=== PATIENT | female | born 2000 | race African-American/Black ===

== ENCOUNTER 2022-07-03 07:24 | Outpatient (CLI) | payer OTHER ==
[2022-07-03 11:48] LABS: BASOPHILS % (AUTO) 0.8 %; EOSINOPHILS # (AUTO) 0.1 10^3/uL (0.0-0.7); EOSINOPHILS % (AUTO) 1.7 %; HCT - HEMATOCRIT 39.9 % (37.0-47.0); HGB - HEMOGLOBIN 12.6 g/dL (12.0-16.0); LYMPHOCYTES % (AUTO) 38.4 %; MEAN CORPUSCULAR HEMOGLOBIN 28.3 pg (27.0-31.0); MEAN CORPUSCULAR HGB CONC 31.6 g/dL (32.0-36.0); MEAN CORPUSCULAR VOLUME 89.5 fL (81.0-99.0); MEAN PLATELET VOLUME 9.9 fL (7.9-10.8); MONOCYTES # (AUTO) 0.3 10^3/uL (0.0-1.0); MONOCYTES % (AUTO) 6.3 %; NEUTROPHILS # (AUTO) 2.8 10^3/uL (1.5-6.6); NEUTROPHILS % (AUTO) 52.8 %; PLT - PLATELET COUNT 358 10^3/uL (130-450); RED BLOOD COUNT 4.46 10^6/uL (4.20-5.40); RED CELL DISTRIBUTION WIDTH 11.6 % (12.0-15.0); WHITE BLOOD COUNT 5.2 x10^3/uL (4.8-10.8)
[2022-07-03 13:40] LABS: ALBUMIN 3.9 g/dL (3.2-5.5); ALBUMIN/GLOBULIN RATIO 1.1 (1.0-2.2); BILIRUBIN,TOTAL 0.6 mg/dL (0.2-1.0); CALCIUM 9.3 mg/dL (8.5-10.3); CREATININE 0.6 mg/dL (0.4-1.0); POTASSIUM 3.9 mmol/L (3.5-5.0); TOTAL PROTEIN 7.5 g/dL (6.7-8.2)
[2022-07-03 13:58] LABS: THYROID STIMULATING HORMONE 1.97 uIU/mL (0.34-5.60)
[2022-07-03 20:53] LABS: CHLAMYDIA TRACHOMATIS DNA NEGATIVE (NEGATIVE); NEISSERIA GONORRHOEAE DNA NEGATIVE (NEGATIVE); TRICHOMONAS VAGINALIS DNA NEGATIVE (NEGATIVE)
[2022-07-04 05:14] LABS: HCV AB Non Reactive (Non Reactive); HIV SCREEN 4TH GENERATION Non Reactive (Non Reactive); HSV 1 IGG TYPE SPEC <0.91 index (0.00-0.90); HSV 2 IGG TYPE SPEC <0.91 index (0.00-0.90)
[2022-07-04 06:10] LABS: RPR Non Reactive (Non Reactive)
== END 2022-07-03 07:25 | disposition home or self-care (01) ==
LOC: LAB.N 07:24
PROVIDERS: ATTEND Physician Assistant
DX: Z00.00 Encounter for general adult medical examination without abnormal findings (principal); Z11.3 Encounter for screening for infections with a predominantly sexual mode of transmission
CPT/HCPCS: 36415; 80053; 84443; 85025; 86592; 86695; 86696; 86803; 87389; 87491; 87591; 87661

== ENCOUNTER 2022-07-03 19:19 | Outpatient (CLI) | payer OTHER ==
[2022-07-03 20:10] LABS: THYROID STIMULATING HORMONE 2.01 uIU/mL (0.34-5.60)
[2022-07-03 20:12] LABS: FREE T3 4.09 pg/mL (2.5-3.9)
[2022-07-03 20:15] LABS: FREE T4 (FREE THYROXINE) 0.76 ng/dL (0.58-1.64)
[2022-07-03 20:18] LABS: PROLACTIN 9.7 ng/mL
[2022-07-03 20:38] LABS: FOLLICLE STIMULATING HORMONE 6.06 mIU/mL
[2022-07-03 20:39] LABS: LUTEINIZING HORMONE 4.99 mIU/mL
[2022-07-05 07:09] LABS: DHEA-SULFATE 66.7 ug/dL (110.0-431.7); ESTRADIOL 37.9 pg/mL (.); PROGESTERONE 0.3 ng/mL (.)
[2022-07-08 16:08] LABS: SEX HORM BINDING GLOB SERUM 43.6 nmol/L (24.6-122.0)
== END 2022-07-03 19:20 | disposition home or self-care (01) ==
LOC: LAB 19:19
PROVIDERS: ATTEND Nurse Practitioner
DX: Z00.00 Encounter for general adult medical examination without abnormal findings (principal); Z11.3 Encounter for screening for infections with a predominantly sexual mode of transmission
CPT/HCPCS: 36415; 80053; 82397; 82627; 82670; 83001; 83002; 83498; 84144; 84146; 84270; 84402; 84403; 84439; 84443; 84481; 85025; 86592; 86695; 86696; 86803; 87389; 87491; 87591; 87661

== ENCOUNTER 2022-08-14 08:00 | Outpatient (CLI) | payer OTHER ==
[2022-08-14 11:37] LABS: BILIRUBIN,URINE NEGATIVE (NEGATIVE); GLUCOSE, URINE (UA) NEGATIVE (NEGATIVE); KETONES,URINE (UA) NEGATIVE (NEGATIVE); LEUKOCYTE ESTERASE, URINE NEGATIVE (NEGATIVE); NITRITE,URINE NEGATIVE (NEGATIVE); OCCULT BLOOD,URINE NEGATIVE (NEGATIVE); PH,URINE 6.5 PH (5.0-7.5); PROTEIN,URINE NEGATIVE (NEGATIVE); UROBILINOGEN,URINE 0.2 (NORMAL) E.U./dL (NORMAL)
[2022-08-14 11:42] LABS: BACTERIA,URINE None Seen /HPF (None Seen); CLARITY,URINE CLEAR (CLEAR); RBC,URINE 0-5 /HPF (0-5); SQUAMOUS EPITHELIAL CELL,UR RARE Squamous (<= Few); WBC,URINE 0-3 /HPF (0-5)
== END 2022-08-14 23:59 | disposition home or self-care (01) ==
LOC: LAB.WC 08:00
PROVIDERS: ATTEND Obstetrics & Gynecology
DX: Z34.90 Encounter for supervision of normal pregnancy, unspecified, unspecified trimester (principal)
CPT/HCPCS: 81001; 87086

== ENCOUNTER 2022-08-18 07:54 | Outpatient (CLI) | payer OTHER ==
[2022-08-18 09:16] LABS: BASOPHILS % (AUTO) 0.5 %; EOSINOPHILS # (AUTO) 0.1 10^3/uL (0.0-0.7); EOSINOPHILS % (AUTO) 0.9 %; HCT - HEMATOCRIT 38.4 % (37.0-47.0); HGB - HEMOGLOBIN 12.6 g/dL (12.0-16.0); LYMPHOCYTES # (AUTO) 1.5 10^3/uL (1.5-3.5); LYMPHOCYTES % (AUTO) 25.9 %; MEAN CORPUSCULAR HEMOGLOBIN 28.7 pg (27.0-31.0); MEAN CORPUSCULAR HGB CONC 32.8 g/dL (32.0-36.0); MEAN CORPUSCULAR VOLUME 87.5 fL (81.0-99.0); MEAN PLATELET VOLUME 9.4 fL (7.9-10.8); MONOCYTES # (AUTO) 0.4 10^3/uL (0.0-1.0); MONOCYTES % (AUTO) 6.8 %; NEUTROPHILS # (AUTO) 3.9 10^3/uL (1.5-6.6); NEUTROPHILS % (AUTO) 65.7 %; PLT - PLATELET COUNT 302 10^3/uL (130-450); RED BLOOD COUNT 4.39 10^6/uL (4.20-5.40); RED CELL DISTRIBUTION WIDTH 11.4 % (12.0-15.0); WHITE BLOOD COUNT 5.9 x10^3/uL (4.8-10.8)
--- NOTE | 2022-08-18 10:59 | Ultrasound Report ---
PROCEDURE: OB First Trimester w/TV INDICATIONS: FERTILITY PLANNING OUTSIDE/PRIOR DATING DATA: Last menstrual period (LMP): 06/30/2022. LMP-based estimated date of delivery (LIZA): 04/06/2023. First dating scan (date and location): 08/18/2022. Estimated date of delivery (LIZA) from first dating scan: 04/09/2023. TECHNIQUE: Real-time scanning was performed of the fetus and maternal pelvic organs, with image documentation. Endovaginal scanning was also performed to better visualize the fetus and maternal ovaries. COMPARISON: None FINDINGS: heart rate is 130 bpm. [place]-rump length is 0.7 cm, corresponding to ultrasound age of 6 weeks and 4 days. Mean gestational sac diameter is 2.1 cm. Adnexal structures are within normal limits. Yolk sac is present. There is a subchorionic hemorrhage measures 3.3 x 2.5 cm. IMPRESSION: Living intrauterine gestation in ultrasound age of 6 weeks and 4 days, concordant with reported LMP. Perigestational hemorrhage is present. Reviewed by: Jose Devries MD on 08/18/2022 10:58 AM PDT Approved by: Jose Devries MD on 08/18/2022 10:58 AM PDT Station ID: [id number]
[2022-08-19 03:09] LABS: HBsAG SCREEN Negative (Negative); HCV AB Non Reactive (Non Reactive); HIV SCREEN 4TH GENERATION Non Reactive (Non Reactive)
[2022-08-19 05:12] LABS: RPR Non Reactive (Non Reactive)
[2022-08-19 08:10] LABS: VARICELLA-ZOSTER AB IGG 468 index (Immune >165)
== END 2022-08-18 07:55 | disposition home or self-care (01) ==
LOC: DI 07:54
PROVIDERS: ATTEND Nurse Practitioner
DX: O20.8 Other hemorrhage in early pregnancy (principal); Z3A.01 Less than 8 weeks gestation of pregnancy; Z71.89 Other specified counseling
CPT/HCPCS: 36415; 85025; 86592; 86762; 86787; 86803; 86850; 86900; 86901; 87340; 87389

== ENCOUNTER 2022-09-04 08:00 | Outpatient (CLI) | payer OTHER ==
[2022-09-04 20:25] LABS: CHLAMYDIA TRACHOMATIS DNA NEGATIVE (NEGATIVE); NEISSERIA GONORRHOEAE DNA NEGATIVE (NEGATIVE); TRICHOMONAS VAGINALIS DNA NEGATIVE (NEGATIVE)
== END 2022-09-04 23:59 | disposition home or self-care (01) ==
LOC: LAB.WC 08:00
PROVIDERS: ATTEND Nurse Practitioner
DX: Z11.3 Encounter for screening for infections with a predominantly sexual mode of transmission (principal)
CPT/HCPCS: 87491; 87591; 87661

== ENCOUNTER 2022-12-09 08:00 | Outpatient (CLI) | payer OTHER ==
[2022-12-09 16:14] LABS: BILIRUBIN,URINE NEGATIVE (NEGATIVE); GLUCOSE, URINE (UA) NEGATIVE (NEGATIVE); KETONES,URINE (UA) NEGATIVE (NEGATIVE); LEUKOCYTE ESTERASE, URINE TRACE (NEGATIVE); NITRITE,URINE NEGATIVE (NEGATIVE); OCCULT BLOOD,URINE NEGATIVE (NEGATIVE); PROTEIN,URINE NEGATIVE (NEGATIVE); UROBILINOGEN,URINE 0.2 (NORMAL) E.U./dL (NORMAL)
[2022-12-09 16:16] LABS: CLARITY,URINE HAZY (CLEAR)
[2022-12-09 16:21] LABS: AMORPHOUS SEDIMENT,UR Marked /LPF; BACTERIA,URINE Rare /HPF (None Seen); RBC,URINE 0-5 /HPF (0-5); SQUAMOUS EPITHELIAL CELL,UR FEW Squamous (<= Few)
[2022-12-09 18:35] LABS: BACTERIAL VAGINOSIS DNA POSITIVE (NEGATIVE); CANDIDA GLABRATA DNA NEGATIVE (NEGATIVE); CANDIDA GROUP DNA POSITIVE (NEGATIVE); CANDIDA KRUSEI DNA NEGATIVE (NEGATIVE); TRICHOMONAS VAGINALIS DNA NEGATIVE (NEGATIVE)
== END 2022-12-09 23:59 | disposition home or self-care (01) ==
LOC: LAB.WC 08:00
PROVIDERS: ATTEND Nurse Practitioner
DX: R30.0 Dysuria (principal); N89.8 Other specified noninflammatory disorders of vagina
CPT/HCPCS: 81001; 81514; 87086

== ENCOUNTER 2022-12-22 08:00 | Outpatient (CLI) | payer OTHER ==
[2022-12-22 16:47] LABS: BILIRUBIN,URINE NEGATIVE (NEGATIVE); GLUCOSE, URINE (UA) 100 mg/dL (NEGATIVE); KETONES,URINE (UA) NEGATIVE (NEGATIVE); LEUKOCYTE ESTERASE, URINE NEGATIVE (NEGATIVE); NITRITE,URINE NEGATIVE (NEGATIVE); OCCULT BLOOD,URINE NEGATIVE (NEGATIVE); PROTEIN,URINE TRACE mg/dL (NEGATIVE); UROBILINOGEN,URINE 0.2 (NORMAL) E.U./dL (NORMAL)
[2022-12-22 17:00] LABS: CREATININE,URINE 195.7 mg/dL; PROTEIN/CREATININE RATIO,URINE 0.1 (<=0.2)
[2022-12-22 17:02] LABS: CLARITY,URINE HAZY (CLEAR); RBC,URINE 0-5 /HPF (0-5)
[2022-12-22 17:03] LABS: BACTERIA,URINE Few /HPF (None Seen); SQUAMOUS EPITHELIAL CELL,UR MANY Squamous (<= Few)
== END 2022-12-22 23:59 | disposition home or self-care (01) ==
LOC: LAB.WC 08:00
PROVIDERS: ATTEND Nurse Practitioner
DX: N89.8 Other specified noninflammatory disorders of vagina (principal); G44.89 Other headache syndrome
CPT/HCPCS: 81001; 82570; 84156

== ENCOUNTER 2022-12-26 09:43 | Outpatient (CLI) | payer OTHER ==
[2022-12-26 12:35] LABS: HCT - HEMATOCRIT 36.8 % (37.0-47.0); HGB - HEMOGLOBIN 12.1 g/dL (12.0-16.0); MEAN CORPUSCULAR HGB CONC 32.9 g/dL (32.0-36.0); MEAN CORPUSCULAR VOLUME 88.2 fL (81.0-99.0); MEAN PLATELET VOLUME 9.6 fL (7.9-10.8); RED BLOOD COUNT 4.17 10^6/uL (4.20-5.40); WHITE BLOOD COUNT 9.6 x10^3/uL (4.8-10.8)
[2022-12-26 12:44] LABS: ESTIMATED AVERAGE GLUCOSE 100 mg/dL (70-100); HEMOGLOBIN A1c% 5.1 % (4.27-6.07)
[2022-12-26 13:06] LABS: ALBUMIN 3.6 g/dL (3.2-5.5); ALBUMIN/GLOBULIN RATIO 1.2 (1.0-2.2); BILIRUBIN,TOTAL 0.4 mg/dL (0.2-1.0); CALCIUM 9.4 mg/dL (8.5-10.3); CREATININE 0.5 mg/dL (0.6-1.3); POTASSIUM 3.8 mmol/L (3.5-4.5); TOTAL PROTEIN 6.6 g/dL (6.4-8.9)
== END 2022-12-26 09:44 | disposition home or self-care (01) ==
LOC: LAB.N 09:43
PROVIDERS: ATTEND Nurse Practitioner
DX: O99.891 Other specified diseases and conditions complicating pregnancy (principal); G44.89 Other headache syndrome; Z36.89 Encounter for other specified antenatal screening; R81 Glycosuria
CPT/HCPCS: 36415; 80053; 82950; 83036; 85027

== ENCOUNTER 2023-03-03 11:51 | Outpatient (CLI) | payer OTHER ==
--- NOTE | 2023-03-04 10:43 | Ultrasound Report ---
PROCEDURE: OB Follow up INDICATIONS: UTERINE SIZE DATE DISCREPENCY OUTSIDE/PRIOR DATING DATA: Last menstrual period (LMP): 06/30/2022. LMP-based estimated date of delivery (LIZA): 04/06/2023. First dating scan (date and location): 08/18/2022. Estimated date of delivery (LIZA) from first dating scan: 04/09/2023. The below data below was generated using the clinical LIZA of 04/06/2023. TECHNIQUE: Real-time scanning was performed of the fetus, with image documentation and biometric measurements. Endovaginal scanning: Not performed. COMPARISON: OB ultrasound, 11/17/2022 and 08/18/2022. FINDINGS: General: A single living intrauterine gestation is present. Presentation: Vertex Placenta: Placental position is anterior, without previa. Amniotic fluid index: 15.3 cm, with the largest pocket 6.5 cm. heart rate: 130 beats per minute. Maternal cervical canal: Closed measuring 4.2 cm long; normal length is 2.5 cm or more. biometrics: Biparietal diameter: 9.17 cm; 37 weeks 2 days; 95%. Head circumference: 32.0 cm; 36 weeks 1 day; 39.6%. Abdominal circumference: 32.5 centimeters; 36 weeks 3 days; 88.2%. Femur length: 6.6 cm; 34 weeks 0 day; 16%. Estimated gestational age from initial scan: 35 weeks 1 day. Composite gestational age from present scan: 36 weeks 0 day Estimated weight and percentile: 2790 g; 68.8% for gestational age. Measurement variability in biometric dating: +/- 10 days from 12-20 weeks gestation, +/- 2 weeks from 20-30 weeks gestation, +/- 3 weeks at 30 weeks gestation or more. Other: Not applicable. IMPRESSION: 1. A single living IUP redemonstrated. growth within normal limits. 2. The estimated weight is 38.8% for gestational age. 3. [place] 15.3 cm. Reviewed by: Samira Bill MD on 03/04/2023 10:41 AM PST Approved by: Samira Bill MD on 03/04/2023 10:41 AM PST Station ID: [id number]
== END 2023-03-03 11:52 | disposition home or self-care (01) ==
LOC: DI 11:51
PROVIDERS: ATTEND Nurse Practitioner
DX: O99.213 Obesity complicating pregnancy, third trimester (principal); O26.843 Uterine size-date discrepancy, third trimester; Z3A.36 36 weeks gestation of pregnancy

== ENCOUNTER 2023-03-04 10:44 | Outpatient (CLI) | payer OTHER ==
[2023-03-04 11:14] VITALS: BP 123/77
--- NOTE | 2023-03-04 12:07 | Labor Flowsheet ---
Labor Flowsheet Datetime Report Generated by CPN: 03/04/2023 12:07 Datetime: 03/04/2023 11:32 TEACHING Teaching Comments: Discharge teacing performed. All patient questions answered at this time. Datetime: 03/04/2023 11:26 PATIENT CARE Patient Care Comments: EFMs removed. Datetime: 03/04/2023 11:09 Pulse: 106 SpO2 (%): 98 Datetime: 03/04/2023 11:07 VITAL SIGNS NBP Sys/Sylwia/Mean (mmHg): 123 : 77 : 86
--- NOTE | 2023-03-04 12:11 | PROCEDURE REPORT ---
- HPI Diagnosis/Indication for NST: Other (Obesity) Current EDU 04/06/23 Gestation 35 Weeks and 2 Days 1 Para 0 Vital Signs Temperature 98.4 F 03/04/23 10:57 Heart Rate 99 03/04/23 10:57 Respiratory Rate 16 03/04/23 10:57 Blood Pressure 123/77 03/04/23 10:57 Temperature 98.4 F 03/04/23 10:57 Heart Rate 99 03/04/23 10:57 Respiratory Rate 16 03/04/23 10:57 Blood Pressure 123/77 03/04/23 10:57 O2 Saturation If not protocol: Oxygen Flow, liters/minute - NST Procedure NST Procedure Start Date 03/04/23 Start Time 10:54 Stop Time 11:25 Vibroacoustic Stimulation Used No Patient States Movement Yes - Results and Plan Plan: Patient is a 23-year-old G1, P0 at 35 weeks gestation here for scheduled NST. NST Performed 03/04/2023 NST Read 03/04/2023 FHT: 125 bpm baseline, moderate variability, accelerations present, no decelerations. Reactive NST [place]: Quiescent Diagnosis 35 weeks gestation Obesity complicating Continue with scheduled NST.
== END 2023-03-04 11:35 | disposition home or self-care (01) ==
LOC: WFO 10:44 → FBP 10:47 → WFO 11:35
PROVIDERS: ATTEND Obstetrics & Gynecology
DX: O99.213 Obesity complicating pregnancy, third trimester (principal); O26.843 Uterine size-date discrepancy, third trimester; Z3A.35 35 weeks gestation of pregnancy
CPT/HCPCS: 59025

== ENCOUNTER 2023-03-12 08:00 | Outpatient (CLI) | payer OTHER ==
[2023-03-12 17:51] LABS: CREATININE,URINE 83.1 mg/dL; PROTEIN/CREATININE RATIO,URINE 0.2 (<=0.2)
[2023-03-12 20:09] LABS: BACTERIAL VAGINOSIS DNA NEGATIVE (NEGATIVE); CANDIDA GLABRATA DNA NEGATIVE (NEGATIVE); CANDIDA GROUP DNA POSITIVE (NEGATIVE); CANDIDA KRUSEI DNA NEGATIVE (NEGATIVE); TRICHOMONAS VAGINALIS DNA NEGATIVE (NEGATIVE)
== END 2023-03-12 23:59 | disposition home or self-care (01) ==
LOC: LAB.WC 08:00
PROVIDERS: ATTEND Nurse Practitioner
DX: H53.9 Unspecified visual disturbance (principal); N89.8 Other specified noninflammatory disorders of vagina; Z36.85 Encounter for antenatal screening for Streptococcus B
CPT/HCPCS: 81514; 82570; 84156; 87797

== ENCOUNTER 2023-03-12 10:45 | Outpatient (CLI) | payer OTHER ==
[2023-03-12 11:02] VITALS: BP 125/72; O2SAT 99
--- NOTE | 2023-03-12 13:18 | PROCEDURE REPORT ---
- HPI Diagnosis/Indication for NST: Other (obesity) Current EDU 04/06/23 Gestation 36 Weeks and 3 Days 1 Para 0 Vital Signs Temperature 98.2 F 03/12/23 10:54 Heart Rate 91 03/12/23 10:54 Respiratory Rate 18 03/12/23 10:54 Blood Pressure 125/72 03/12/23 10:54 O2 Saturation 99 03/12/23 10:54 Temperature 98.2 F 03/12/23 10:54 Heart Rate 91 03/12/23 10:54 Respiratory Rate 18 03/12/23 10:54 Blood Pressure 125/72 03/12/23 10:54 O2 Saturation 99 03/12/23 10:54 If not protocol: Oxygen Flow, liters/minute - NST Procedure NST Procedure Start Date 03/12/23 Start Time 10:54 Stop Time 11:21 Vibroacoustic Stimulation Used No - Results and Plan Findings/Impression: 120 mod ismael + A cells no D cells reactive Plan: OK to D/C home with precautions and to continue scheduled ANC.
== END 2023-03-12 11:30 | disposition home or self-care (01) ==
LOC: WFO 10:45 → FBP 10:46 → WFO 11:30
PROVIDERS: ATTEND Obstetrics & Gynecology
DX: O99.213 Obesity complicating pregnancy, third trimester (principal); Z3A.36 36 weeks gestation of pregnancy; O99.891 Other specified diseases and conditions complicating pregnancy; H53.9 Unspecified visual disturbance; N89.8 Other specified noninflammatory disorders of vagina
CPT/HCPCS: 59025; 81514; 82570; 84156; 87797

== ENCOUNTER 2023-03-19 09:56 | Outpatient (CLI) | payer OTHER ==
[2023-03-19 10:12] VITALS: BP 130/77; O2SAT 98
--- NOTE | 2023-03-19 17:56 | PROCEDURE REPORT ---
- HPI Diagnosis/Indication for NST: Other (Obesity) Current EDU 04/06/23 Gestation 37 Weeks and 3 Days 1 Para 0 Vital Signs Temperature 98.2 F 03/19/23 10:09 Temperature 98.2 F 03/19/23 10:10 Heart Rate 118 H 03/19/23 10:10 Respiratory Rate 15 03/19/23 10:10 Blood Pressure 130/77 03/19/23 10:10 O2 Saturation 98 03/19/23 10:10 If not protocol: Oxygen Flow, liters/minute - NST Procedure NST Procedure Start Date 03/19/23 Start Time 10:06 Stop Time 10:42 Vibroacoustic Stimulation Used No Patient States Movement Yes - Results and Plan Plan: Patient is a 23-year-old G1, P0 at 37 weeks gestation here for scheduled NST. NST Performed 03/19/2023 NST Read 03/19/2023 FHT: 140 bpm baseline, moderate variability, accelerations present, no decelerations. Reactive NST [place]: Quiescent Diagnosis 37 weeks gestation Obesity Continue with scheduled NST.
== END 2023-03-19 10:46 | disposition home or self-care (01) ==
LOC: WFO 09:56 → FBP 10:02 → WFO 10:46
PROVIDERS: ATTEND Obstetrics & Gynecology
DX: O99.213 Obesity complicating pregnancy, third trimester (principal); Z3A.37 37 weeks gestation of pregnancy
CPT/HCPCS: 59025

== ENCOUNTER 2023-03-26 10:00 | Outpatient (CLI) | payer OTHER ==
[2023-03-26 10:15] VITALS: BP 126/72; O2SAT 97
--- NOTE | 2023-03-26 14:23 | PROCEDURE REPORT ---
- HPI Diagnosis/Indication for NST: Other (obesity) Current EDU 04/06/23 Gestation 38 Weeks and 3 Days 1 Para 0 Vital Signs Temperature 98.2 F 03/26/23 10:14 Heart Rate 92 03/26/23 10:14 Respiratory Rate 17 03/26/23 10:14 Blood Pressure 126/72 03/26/23 10:14 O2 Saturation 97 03/26/23 10:14 Temperature 98.2 F 03/26/23 10:18 Heart Rate 92 03/26/23 10:14 Respiratory Rate 17 03/26/23 10:14 Blood Pressure 126/72 03/26/23 10:14 O2 Saturation 97 03/26/23 10:14 If not protocol: Oxygen Flow, liters/minute - NST Procedure NST Procedure Start Date 03/26/23 Start Time 10:11 Stop Time 10:50 Vibroacoustic Stimulation Used No Patient States Movement Yes - Results and Plan Findings/Impression: 135 mod ismael + A cells no D cells reactive Plan: IUP @ 38w reactive NST OK to D/C home with precautions and continue scheduled ANC.
== END 2023-03-26 10:50 | disposition home or self-care (01) ==
LOC: WFO 10:00 → FBP 10:01 → WFO 10:50
PROVIDERS: ATTEND Obstetrics & Gynecology
DX: O99.213 Obesity complicating pregnancy, third trimester (principal); Z3A.38 38 weeks gestation of pregnancy
CPT/HCPCS: 59025

== ENCOUNTER 2023-04-02 10:04 | Outpatient (CLI) | payer OTHER ==
[2023-04-02 10:34] VITALS: O2SAT 98
[2023-04-02 10:44] VITALS: BP 143/81
[2023-04-02 11:04] LABS: BASOPHILS % (AUTO) 0.4 %; EOSINOPHILS # (AUTO) 0.1 10^3/uL (0.0-0.7); EOSINOPHILS % (AUTO) 1.1 %; HCT - HEMATOCRIT 37.5 % (37.0-47.0); HGB - HEMOGLOBIN 12.3 g/dL (12.0-16.0); LYMPHOCYTES # (AUTO) 2.1 10^3/uL (1.5-3.5); LYMPHOCYTES % (AUTO) 22.6 %; MEAN CORPUSCULAR HEMOGLOBIN 29.4 pg (27.0-31.0); MEAN CORPUSCULAR HGB CONC 32.8 g/dL (32.0-36.0); MEAN CORPUSCULAR VOLUME 89.5 fL (81.0-99.0); MEAN PLATELET VOLUME 10.3 fL (7.9-10.8); MONOCYTES # (AUTO) 0.6 10^3/uL (0.0-1.0); NEUTROPHILS # (AUTO) 6.6 10^3/uL (1.5-6.6); NEUTROPHILS % (AUTO) 69.4 %; PLT - PLATELET COUNT 227 10^3/uL (130-450); RED BLOOD COUNT 4.19 10^6/uL (4.20-5.40); RED CELL DISTRIBUTION WIDTH 12.1 % (12.0-15.0); WHITE BLOOD COUNT 9.5 x10^3/uL (4.8-10.8)
[2023-04-02 11:26] LABS: ALBUMIN 3.4 g/dL (3.2-5.5); ALBUMIN/GLOBULIN RATIO 1.2 (1.0-2.2); BILIRUBIN,TOTAL 0.4 mg/dL (0.2-1.0); CALCIUM 9.7 mg/dL (8.5-10.3); CREATININE 0.6 mg/dL (0.6-1.3); POTASSIUM 3.7 mmol/L (3.5-4.5); TOTAL PROTEIN 6.3 g/dL (6.4-8.9)
[2023-04-02 11:32] LABS: CREATININE,URINE 33.8 mg/dL; PROTEIN/CREATININE RATIO,URINE 0.2 (<=0.2)
--- NOTE | 2023-04-02 13:05 | PROCEDURE REPORT ---
- HPI Current EDU 04/06/23 Gestation 39 Weeks and 3 Days 1 Para 0 Vital Signs Temperature 98.2 F 04/02/23 10:15 Heart Rate 110 H 04/02/23 10:15 Respiratory Rate 17 04/02/23 10:15 Blood Pressure 138/75 H 04/02/23 10:15 O2 Saturation 98 04/02/23 10:15 Temperature 98.2 F 04/02/23 10:28 Heart Rate 110 H 04/02/23 10:15 Respiratory Rate 17 04/02/23 10:15 Blood Pressure 143/81 H 04/02/23 10:31 O2 Saturation 98 04/02/23 10:15 If not protocol: Oxygen Flow, liters/minute - NST Procedure NST Procedure Start Date 04/02/23 Start Time 10:15 Stop Time 10:44 Vibroacoustic Stimulation Used No Patient States Movement Yes - Results and Plan Plan: Patient is a 23-year-old G1, P0 at 39 weeks 3 days gestation here for NST. NST Performed 04/02/2023 NST Read 04/02/2023 FHT: 125 bpm baseline, moderate variability, accelerations present, no decelerations. Reactive NST [place]: Rare Diagnosis 39 weeks gestation Obesity complicating , prepregnancy BMI of 36 Continue with scheduled NST.
== END 2023-04-02 11:05 | disposition home or self-care (01) ==
LOC: WFO 10:04 → FBP 10:09 → WFO 11:05
PROVIDERS: ATTEND Obstetrics & Gynecology
DX: O99.213 Obesity complicating pregnancy, third trimester (principal); Z3A.39 39 weeks gestation of pregnancy
CPT/HCPCS: 36415; 59025; 80053; 82570; 84156; 85025

== ENCOUNTER 2023-04-02 14:07 | Inpatient (IN) | payer OTHER ==
[2023-04-02] MEDS ORDERED: LABETALOL 20 MG/4 ML SYRINGE IVP PRN ×3 (15:08)
[2023-04-02] MEDS ORDERED: hydrALAZINE INJ 20 MG/ML VIAL IVP PRN ×2 (15:08)
[2023-04-02] MEDS ORDERED: METHYLERGONOVINE 0.2 MG/ML VIAL IM PRN (15:08)
[2023-04-02] MEDS ORDERED: TERBUTALINE 1 MG/ML VIAL SUBQ PRN (15:08)
[2023-04-02] MEDS ORDERED: fentaNYL 100 MCG/2 ML VIAL IVP PRN (15:08)
[2023-04-02] MEDS ORDERED: lidocaine 1% 20 ML MDV ID PRN (15:08)
[2023-04-02] MEDS ORDERED: OXYTOCIN/SODIUM CHLORIDE 500 ML IV PRN (15:08)
[2023-04-02] MEDS ORDERED: OXYTOCIN 10 UNIT/ML VIAL IM PRN (15:08)
[2023-04-02] MEDS ORDERED: CARBOPROST TROMETHAMINE 250 MCG/ML AMP IM PRN (15:08)
[2023-04-02] MEDS ORDERED: miSOPROStoL 200 MCG TABLET PR PRN (15:08)
[2023-04-02] MEDS ORDERED: NIFEdipine 10 MG CAPSULE PO PRN (15:08)
[2023-04-02] MEDS ORDERED: miSOPROStoL 200 MCG TABLET BC PRN (15:08)
[2023-04-02] MEDS ORDERED: SODIUM CHLORIDE FLUSH 0.9% 10 ML SYRINGE IVP PRN (15:08)
[2023-04-02] MEDS ORDERED: LACTATED RINGERS 1,000 ML IV PRN (15:08)
[2023-04-02] MEDS ORDERED: TRANEXAMIC ACID IN NACL 1,000 MG/100 ML BAG IV PRN (15:08)
[2023-04-02] MEDS: miSOPROStoL 100 MCG TABLET BC SCH (15:24)
[2023-04-02] MEDS ORDERED: LACTATED RINGERS 1,000 ML IV SCH (16:00)
--- NOTE | 2023-04-02 18:09 | PROCEDURE REPORT ---
- HPI Current EDU 04/06/23 Gestation 39 Weeks and 3 Days 1 Vital Signs Temperature 98.4 F 04/02/23 14:23 Temperature 98.4 F 04/02/23 14:23 Heart Rate Respiratory Rate Blood Pressure O2 Saturation If not protocol: Oxygen Flow, liters/minute - NST Procedure NST Procedure Start Time 10:15 Stop Time 10:44 - Results and Plan Plan: Patient is a 23-year-old G1, P0 at 39 weeks 3 days gestation here for NST. NST Performed 04/02/2023 NST Read 04/02/2023 FHT: 125 bpm baseline, moderate variability, accelerations present, no decelerations. Reactive NST [place]: Rare Diagnosis 39 weeks gestation Obesity complicating , prepregnancy BMI of 36 Continue with scheduled NST.
--- NOTE | 2023-04-02 18:19 | HISTORY & PHYSICAL EXAMINATION ---
Admit History - : 1 Parity: 0 Risk/History: positive: Other (Obesity) Smoking Status: Never smoker - Mother's Labs Mother's Blood Type: positive: O Mother's RH: positive: Positive GBS: positive: Group B Step Negative Rubella Status: positive: Immune - Other Maternal History Other Maternal History: HPI: Patient is a 23-year-old G1, P0 at 39 weeks 3 days gestation admitted for induction of labor. She had an elevated blood pressure earlier today and di scussed expectant management versus induction and the possible progression to gestational hypertension/preeclampsia. She has good movement. Denies loss of fluid. No WATTS/BV or RUQP. No vaginal bleeding. Denies nausea and vomiting. Denies urinary urgency or dysuria. All other symptoms reviewed and were negative except per HPI. Course LMP: 06/30/2022 LIZA by LMP: 04/06/2023 08/18/2022/6+4 weeks/C/W dates Final LIZA:04/06/2023 FHT: 130 Additional Notes: subchorionic hemorrhage 3.3x 2.5cm LDASA Pre- Weight:209.8 BMI: 36.14 Blood type: O+ Antibody: negative CBC: PLT 302 HCT 38.4 HGB 12.6 RUB: immune VZV: immune HBsAg: negative HepC: N-R RPR/AB-EIA: N-R HIV: N-R PAP: 2021 normal per pt GC/CT: self-collcting /6- Negative HSV: denies self/parntner Genetic testing: Normal/ XY Covid: none Flu: none; declines 11/24 FAS: WNL Placenta: anterior, no previa Cord: 3VC [place]: normal EFW: 87th %ile 50gm OGCT: : 1hr-132; A1C- 5.1 3HR GTT: TDAP: Given 01/01 Breast Pump: Given 01/19 Antibody screen: 3rd trimester PLT 326 HCT 36.8 HGB 12.1 3rd trimester HIV GBS:NEGATIVE RSV: declines Delivery plan: MOD: Contraception: IUD. Possible postplacental. PMH Denies pertinent medical history PSH Denies prior surgeries OB History G1, P0 SH Denies tobacco, alcohol, drugs Family History Mother: Diabetes, leg cancer Maternal grandmother: Breast cancer Allergies No known drug allergies Medications Aspirin 81 mg vitamins Physical exam: General: Alert, oriented, no acute distress Head: Normal cephalic atraumatic Eyes: PERRLA, extraocular motions intact. Respiratory: Normal rate of respiration. No accessory muscle use, normal respiratory effort. Cardiovascular: Regular rate and rhythm Abdomen: Gravid, nontender, nondistended Extremities: Normal range of motion Neuro: Oriented x3. Normal movements Psych: Appropriate mood and affect. Normal judgment and insight SVE: 3 in clinic today FHT: 125 bpm baseline, moderate variability, accelerations present, no decelerations. [facility]: Quiescent Plan 23-year-old G1, P0 at 39 weeks 3 days gestation admitted for induction of labor 1. Induction of labor discussed the risk, benefits and alternatives of induction of labor. Patient agrees to proceed. -Cervix unfavorable, will proceed with cervical ripening. Discussed cervical ripening balloon versus misoprostol and patient elects for misoprostol. Will give 25 mcg every 4 hours buccal. -Admit to L&D, admit labs, anticipate AROM, anticipate 2. Elevated blood pressure -No diagnosis of gestational hypertension or chronic hypertension. Had a single elevated blood pressure earlier today. Will monitor throughout delivery 3. Obesity class II with prepregnancy BMI of 36. - HPI Current EDU 04/06/23 Gestation 39 Weeks and 3 Days 1 Vital Signs Temperature 98.4 F 04/02/23 14:23 Temperature 98.4 F 04/02/23 14:23 Heart Rate Respiratory Rate Blood Pressure O2 Saturation If not protocol: Oxygen Flow, liters/minute - NST Procedure NST Procedure Start Time 10:15 Stop Time 10:44 Meds/Allgy - Home Medications Home Medications: Ambulatory Orders Medication Instructions Recorded Confirmed Aspirin [[place] Aspirin EC] 81 mg PO 04/02/23 No122/Iron/Folic Acid 1 tab ORAL 04/02/23 [ Multi Tablet] - Allergies Allergies/Adverse Reactions: Allergies Allergy/AdvReac Type Severity Reaction Status Date / Time No Known Drug Allergies Allergy Verified 04/02/23 15:18 Physical - Abdominal Exam Vital Signs: Temp Pulse Resp BP Pulse Ox O2 Flow Rate 98.4 F 04/02/23 14:23 Plan for Labor - Plan For Labor I expect patient to be DC'd or transferred within 96 hours.: Yes
[2023-04-02] MEDS: SODIUM CHLORIDE FLUSH 0.9% 10 ML SYRINGE IVP SCH (19:15)
--- NOTE | 2023-04-03 10:11 | PHARMACY PROGRESS NOTE ---
- Best Possible Medication History Admit Date and Time: 04/02/23 1508 Processed by: Pharmacy As the person ultimately responsible for medication therapy, providers are able to order a medication from an existing home medication list in [facility] via the "Reconcile Routine" prior to Confirmation of that medication by direct support staff. Such practice is discouraged except when the physician, in their clinical judgment, deems that a medical need exists for a medication without regard to previous use.
[2023-04-03 17:33] VITALS: BP 127/71; O2SAT 99
--- NOTE | 2023-04-03 20:33 | PROVIDER PROGRESS NOTE ---
Subjective - Prog Note Date Prog Note Date: 04/03/23 Prog Note Time: 08:00 - Subjective Subjective: antwan too much for another miso right now. has had 4 so far. will have her walk some and then if contractions slow, place another. FHT category 1. bps all < 140/90. Objective - Vital Signs/Intake & Output Vital Signs: Vital Signs x48h Temp Pulse Resp BP Pulse Ox 04/03/23 17:01 98.2 F 82 16 127/71 99 Intake & Output: Intake & Output 03/31/23 04/01/23 04/02/23 04/03/23 23:59 23:59 23:59 23:59 Intake Total 500 Balance 500
--- NOTE | 2023-04-03 20:36 | PROVIDER PROGRESS NOTE ---
Subjective - Prog Note Date Prog Note Date: 04/03/23 Prog Note Time: 17:00 - Subjective Subjective: s/p miso x 6 now and not in labor. checked her cervix at lunch time before 6th dose and was 2/80/-3 still posterior but soft. so some change. baby category 1. discussed that she has not gone in to labor with miso and bps are not elevated, except one. labs were normal. Objective - Vital Signs/Intake & Output Vital Signs: Vital Signs x48h Temp Pulse Resp BP Pulse Ox 04/03/23 17:01 98.2 F 82 16 127/71 99 Intake & Output: Intake & Output 03/31/23 04/01/23 04/02/23 04/03/23 23:59 23:59 23:59 23:59 Intake Total 500 Balance 500 Assessment/Plan - Problem List (1) Encounter for elective induction of labor Impression: did not go into labor with miso x 6. bps stayed nromal. options discussed. plan to discharge home and wait for spontaneous labor. may occur any time. when to return discussed. also plan return for NST thursday.
--- NOTE | 2023-04-03 20:39 | DISCHARGE SUMMARY ---
Discharge Summary Admit Date: 04/02/23 Discharge Date: 04/03/23 Discharging Provider: Jeni Pelaez MD Code Status: Attempt Resuscitation Condition at Discharge: Good - DIAGNOSES Admission Diagnoses: encounter for elective induction of labor. not successfull. one elevated bp but no others so no gestational hypertension. well being reassuring. - HPI History of Present Illness: G1 with 39+ weeks admitted for elective induction after one elevated bps. wanted to watch bp as well. - HOSPITAL COURSE Hospital Course: Labs normal. no elevated bps. s/p miso x 6 and change of cervix from 1 cm to 2 cm. discharged home to await labor spontaneously. when to return discussed. FHT always category 1. - ALLERGIES Allergies/Adverse Reactions: Allergies Allergy/AdvReac Type Severity Reaction Status Date / Time No Known Drug Allergies Allergy Verified 04/02/23 15:18 - MEDICATIONS Home Medications: Ambulatory Orders Medication Instructions Recorded Confirmed Aspirin [[place] Aspirin EC] 81 mg PO DAILY 04/02/23 04/03/23 No122/Iron/Folic Acid 1 tab PO DAILY 04/02/23 04/03/23 [ Multi Tablet] - PHYSICAL EXAM AT DISCHARGE General Appearance: positive: No acute distress Respiratory: positive: No respiratory distress Abdomen: positive: Non-tender - FOLLOW UP Follow Up: nst on Thursday if not in labor. - TIME SPENT Time Spent in Discharge (Minutes): 30
== END 2023-04-03 17:30 | disposition home or self-care (01) | DRG 833 ==
LOC: WFO 14:07 → FBP 14:17 → WFO 15:37
PROVIDERS: ADMIT Obstetrics & Gynecology; ATTEND Obstetrics & Gynecology
PROC: 3E0DXGC Introduction of Other Therapeutic Substance into Mouth and Pharynx, External Approach (ICD-10-PCS; principal; 2023-04-02)
DX: O99.891 Other specified diseases and conditions complicating pregnancy (principal); R03.0 Elevated blood-pressure reading, without diagnosis of hypertension; O99.213 Obesity complicating pregnancy, third trimester; Z3A.39 39 weeks gestation of pregnancy; O61.0 Failed medical induction of labor
CPT/HCPCS: 36415; 80053; 82570; 84156; 85025; 86850; 86900; 86901; A9270; J7120; 59025

== ENCOUNTER 2023-04-04 13:40 | Outpatient (CLI) | payer OTHER ==
[2023-04-04 15:10] VITALS: BP 124/79; O2SAT 100
--- NOTE | 2023-04-04 17:48 | PROVIDER PROGRESS NOTE ---
- HPI Chief Complaint: Decreased movement Current : Current EDU 04/06/23 Gestation 39 Weeks and 5 Days 1 Para 0 s/p miso x 6 for labor induction yesterday and d/c home. slept well last night. this afternoon, decrease movement. no sebastian, n/v. bps all normal after the 141/88. Vital Signs Temperature 98.2 F 04/04/23 13:59 Heart Rate 85 04/04/23 13:59 Respiratory Rate 17 04/04/23 13:59 Blood Pressure 141/88 H 04/04/23 13:59 Temperature 98.2 F 04/04/23 13:59 Heart Rate 80 04/04/23 14:45 Respiratory Rate 16 04/04/23 14:45 Blood Pressure 124/79 04/04/23 14:45 O2 Saturation 100 04/04/23 14:45 If not protocol: Oxygen Flow, liters/minute - Exam abdomen not tender. minimal edema. cervix 3/80/-3 soft. still posterior. head well applied. - Procedures OB Procedure Performed: NST NST Procedure: NST Procedure Start Date 04/04/23 Start Time 14:18 Stop Time 14:38 Vibroacoustic Stimulation Used No Patient States Movement Yes: Reports none until arrival on unit Service Date of procedure: 04/04/23 Procedure Details: NST reviewed in real time. moderate variablity. + acel. maybe a ? decel early, but did not trace well and did not repeat. Findings: reactive nst. not in labor. - Plan Plan: discharge home. return with any further decrease movement, headache, labor, srom or other concerns. return tomorrow for another nst and to check bp.
== END 2023-04-04 15:15 | disposition home or self-care (01) ==
LOC: WFO 13:40 → FBP 13:41 → WFO 15:15
PROVIDERS: ATTEND Obstetrics & Gynecology
DX: O36.8130 Decreased fetal movements, third trimester, not applicable or unspecified (principal); Z3A.39 39 weeks gestation of pregnancy
CPT/HCPCS: 59025; 99215

== ENCOUNTER 2023-04-05 17:55 | Inpatient (IN) | payer OTHER ==
[2023-04-05] MEDS ORDERED: SODIUM CHLORIDE FLUSH 0.9% 10 ML SYRINGE IVP PRN (18:55)
[2023-04-05] MEDS ORDERED: LABETALOL 20 MG/4 ML SYRINGE IVP PRN ×3 (18:55)
[2023-04-05] MEDS ORDERED: miSOPROStoL 200 MCG TABLET BC PRN (18:55)
[2023-04-05] MEDS ORDERED: TRANEXAMIC ACID IN NACL 1,000 MG/100 ML BAG IV PRN (18:55)
[2023-04-05] MEDS ORDERED: OXYTOCIN 10 UNIT/ML VIAL IM PRN (18:55)
[2023-04-05] MEDS ORDERED: NIFEdipine 10 MG CAPSULE PO PRN (18:55)
[2023-04-05] MEDS ORDERED: TERBUTALINE 1 MG/ML VIAL SUBQ PRN (18:55)
[2023-04-05] MEDS ORDERED: lidocaine 1% 20 ML MDV ID PRN (18:55)
[2023-04-05] MEDS ORDERED: hydrALAZINE INJ 20 MG/ML VIAL IVP PRN ×2 (18:55)
[2023-04-05] MEDS ORDERED: METHYLERGONOVINE 0.2 MG/ML VIAL IM PRN (18:55)
[2023-04-05] MEDS ORDERED: fentaNYL 100 MCG/2 ML VIAL IVP PRN (18:55)
[2023-04-05] MEDS ORDERED: CARBOPROST TROMETHAMINE 250 MCG/ML AMP IM PRN (18:55)
[2023-04-05] MEDS ORDERED: miSOPROStoL 200 MCG TABLET PR PRN (18:55)
[2023-04-05] MEDS ORDERED: OXYTOCIN/SODIUM CHLORIDE 500 ML IV PRN (18:55)
[2023-04-05] MEDS ORDERED: SODIUM CHLORIDE FLUSH 0.9% 10 ML SYRINGE IVP SCH (19:00)
--- NOTE | 2023-04-05 19:20 | HISTORY & PHYSICAL EXAMINATION ---
History and Physical - History and Physical 23 yo G1 with IUP at 39w6d presents with labor. is complicated by obesity. she had one elevated bp and started induction night but went home Thursday evening after 6 miso and no labor. She came in yesterday with decreased movement and then was feeling her baby and went home. She was 3.5 cm yesterday. Today, Thursday she returns with more contractions. She wants to stay and have her baby. ROS: no fever or headache. tired of contractions. more swelling today. Good movement. last ultrasound: biometrics: Biparietal diameter: 9.17 cm; 37 weeks 2 days; 95%. Head circumference: 32.0 cm; 36 weeks 1 day; 39.6%. Abdominal circumference: 32.5 centimeters; 36 weeks 3 days; 88.2%. Femur length: 6.6 cm; 34 weeks 0 day; 16%. Estimated gestational age from initial scan: 35 weeks 1 day. Composite gestational age from present scan: 36 weeks 0 day Estimated weight and percentile: 2790 g; 68.8% for gestational age. 03/04/2023 10:45AM (GMT-08:00) LMP: 06/30/2022 LIZA by LMP: 04/06/2023 08/18/2022/6+4 weeks/C/W dates Final LIZA:04/06/2023 FHT: 130 Additional Notes: subchorionic hemorrhage 3.3x 2.5cm LDASA FOKelsey Sánchez is in [place]. Pre- Weight:209.8 BMI: 36.14 Blood type: O+ Antibody: negative CBC: PLT 302 HCT 38.4 HGB 12.6 RUB: immune VZV: immune HBsAg: negative HepC: N-R RPR/AB-EIA: N-R HIV: N-R PAP: 2021 normal per pt GC/CT: self-collcting 09/04- Negative HSV: denies self/partner Genetic testing: Normal/ XY Covid: none Flu: none; declines 11/24 FAS: WNL Placenta: anterior, no previa Cord: 3VC [place]: normal EFW: 87th %ile 50gm OGCT: : 1hr-132; A1C- 5.1 3HR GTT: TDAP: Given 01/01 Breast Pump: Given 01/19 Antibody screen: 3rd trimester PLT 326 HCT 36.8 HGB 12.1 3rd trimester HIV GBS:NEGATIVE RSV: declines Delivery plan: MOD: Contraception: IUD. Possible postplacental. Medical hx: Obesity. surgical hx: none meds: pnv, ld-asa daily vital signs: 134/86 FHT category 1, not picking up contractions well. abdomen soft not tender. cervix 4/90/-3 very soft. bulgy bag. extremities with 1+ edema. labs pending. A/P term 39w6d. s/p miso x 6 for induction to Thursday and then went home as not in labor. now 4 cm and very soft. ready to stay. epidural soon. will augment with pitocin as contractions are not very frequent, only about q6-8 min. epidural whenever she is ready. labs since she is more puffy. anticipate
[2023-04-05 20:06] LABS: BASOPHILS % (AUTO) 0.3 %; EOSINOPHILS # (AUTO) 0.1 10^3/uL (0.0-0.7); EOSINOPHILS % (AUTO) 0.7 %; HCT - HEMATOCRIT 41.9 % (37.0-47.0); HGB - HEMOGLOBIN 13.5 g/dL (12.0-16.0); LYMPHOCYTES # (AUTO) 1.8 10^3/uL (1.5-3.5); LYMPHOCYTES % (AUTO) 18.9 %; MEAN CORPUSCULAR HEMOGLOBIN 28.5 pg (27.0-31.0); MEAN CORPUSCULAR HGB CONC 32.2 g/dL (32.0-36.0); MEAN CORPUSCULAR VOLUME 88.4 fL (81.0-99.0); MEAN PLATELET VOLUME 10.8 fL (7.9-10.8); MONOCYTES # (AUTO) 0.7 10^3/uL (0.0-1.0); NEUTROPHILS # (AUTO) 6.8 10^3/uL (1.5-6.6); NEUTROPHILS % (AUTO) 72.6 %; PLT - PLATELET COUNT 265 10^3/uL (130-450); RED BLOOD COUNT 4.74 10^6/uL (4.20-5.40); RED CELL DISTRIBUTION WIDTH 12.1 % (12.0-15.0); WHITE BLOOD COUNT 9.4 x10^3/uL (4.8-10.8)
[2023-04-05 20:16] LABS: ALBUMIN 3.6 g/dL (3.2-5.5); ALBUMIN/GLOBULIN RATIO 1.2 (1.0-2.2); BILIRUBIN,TOTAL 0.3 mg/dL (0.2-1.0); CALCIUM 9.9 mg/dL (8.5-10.3); CREATININE 0.6 mg/dL (0.6-1.3); POTASSIUM 4.2 mmol/L (3.5-4.5); TOTAL PROTEIN 6.7 g/dL (6.4-8.9)
[2023-04-05] MEDS: LACTATED RINGERS 1,000 ML IV PRN (20:16)
[2023-04-05] MEDS ORDERED: ROPIVACAINE 0.2% 200 MG/100 ML BAG EP ONE (20:38)
[2023-04-05] MEDS ORDERED: LIDOCAINE 2%-EPI 1:100000 20 ML MDV ONE (20:38)
[2023-04-05 20:58] LABS: CREATININE,URINE 59.3 mg/dL; PROTEIN/CREATININE RATIO,URINE 0.2 (<=0.2)
[2023-04-05] MEDS: OXYTOCIN/SODIUM CHLORIDE 500 ML IV SCH (21:45)
--- NOTE | 2023-04-05 21:56 | PROVIDER PROGRESS NOTE ---
Progress Note labs reviewed. just got epidural. took a few tries and maybe a wet tap per rn. bps are good. pitocin as needed to accomplish a good contraction pattern.
[2023-04-05] MEDS ORDERED: LACTATED RINGERS 500 ML IV ONE (21:57)
[2023-04-05] MEDS ORDERED: ONDANSETRON 4 MG/2 ML VIAL IVP PRN (21:57)
[2023-04-05] MEDS ORDERED: ePHEDrine 50 MG/ML VIAL IVP PRN (21:57)
[2023-04-05] MEDS ORDERED: diphenhydrAMINE INJ 50 MG/ML VIAL IVP PRN (21:57)
[2023-04-05] MEDS ORDERED: NALOXONE 0.4 MG/ML VIAL IVP PRN (21:57)
[2023-04-05] MEDS ORDERED: NALBUPHINE 10 MG/ML AMP IVP PRN (21:57)
[2023-04-05] MEDS ORDERED: METOCLOPRAMIDE 10 MG/2 ML VIAL IVP PRN (21:57)
--- NOTE | 2023-04-05 21:57 | ANESTHESIA ---
Pre-Anesthesia VS, & Labs - Diagnosis DESIRES LABOR EPIDURAL - Procedure LABOR EPIDURAL Vital Signs: Temp Pulse Resp BP Pulse Ox O2 Flow Rate 36.9 C 86 15 134/86 H 99 04/05/23 18:57 04/05/23 18:09 04/05/23 18:09 04/05/23 18:09 04/05/23 18:09 Height: 5 ft 4 in Weight (kg): 106.141 kg Body Mass Index: 40.1 BMI Classification: Morbidly Obese - Is Patient ?: Yes - Lab Results Current Lab Results: Laboratory Tests 04/05/23 19:35: Sodium 137, Potassium 4.2, Chloride 106, Carbon Dioxide 22, [place] 9.0, BUN 8, Creatinine 0.6, Estimated GFR (MDRD) 150, Glucose 79, Calcium 9.9, Total Bilirubin 0.3, AST 12, ALT 14, Alkaline Phosphatase 103, Total Protein 6.7, Albumin 3.6, Globulin 3.1, Albumin/Globulin Ratio 1.2 04/05/23 19:35: WBC 9.4, RBC 4.74, Hgb 13.5, Hct 41.9, MCV 88.4, MCH 28.5, MCHC 32.2, RDW 12.1, Plt Count 265, MPV 10.8, Neut # (Auto) 6.8 H, Lymph # (Auto) 1.8, Weber # (Auto) 0.7, Eos # (Auto) 0.1, Baso # (Auto) 0.0, Absolute Nucleated RBC 0.00, Nucleated RBC % 0.0 04/05/23 19:35: Blood Type O POSITIVE, Antibody Screen NEGATIVE 04/05/23 19:35: Uric Acid 4.2 Fish Bones: 04/05/23 19:35 04/05/23 19:35 Home Medications and Allergies Active Medications Carboprost Tromethamine (Carboprost Tromethamine 250 Mcg/Ml Amp) 250 mcg IM .ONCE PRN PRN Reason: Hemorrhage Fentanyl (Fentanyl 100 Mcg/2 Ml Vial) 50 mcg IVP Q1H PRN PRN Reason: Severe Pain (score 7-10) Hydralazine HCl (Hydralazine Inj 20 Mg/Ml Vial) 5 - 10 mg IVP Q20M PRN; Protocol PRN Reason: SBP> or= 160 OR DBP> or= 110 Hydralazine HCl (Hydralazine Inj 20 Mg/Ml Vial) 10 mg IVP .ONCE PRN; Protocol PRN Reason: SBP> or= 160 OR DBP> or= 110 Lactated Ringer's (Lr) 500 mls @ 999 mls/hr IV PRN PRN PRN Reason: NEEDED PER PROVIDER ORDERS Last Admin: 04/05/23 20:16 Dose: 999 mls/hr Oxytocin/Sodium Chloride (Pitocin/Sodium Chloride) 500 mls @ 999 mls/hr IV PRN PRN; Protocol PRN Reason: POST- HEMORR PREVENTION Tranexamic Acid (Tranexamic 1,000 Mg/100ml-Nacl) 1,000 mg in 100 mls @ 600 mls/hr IV Q30M PRN PRN Reason: EBL >1200mL and within 3hr Oxytocin/Sodium Chloride (Pitocin/Sodium Chloride) 500 mls @ 1 mls/hr IV TITR DOMINICK; Protocol Labetalol HCl (Labetalol 20 Mg/4 Ml Syringe) 20 - 80 mg IVP Q10M PRN; Protocol PRN Reason: SBP> or= 160 OR DBP> or= 110 Labetalol HCl (Labetalol 20 Mg/4 Ml Syringe) 20 mg IVP .ONCE PRN; Protocol PRN Reason: SBP> or= 160 OR DBP> or= 110 Labetalol HCl (Labetalol 20 Mg/4 Ml Syringe) 20 - 40 mg IVP Q10M PRN; Protocol PRN Reason: SBP> or= 160 OR DBP> or= 110 Lidocaine HCl (Lidocaine 1% 20 Ml Mdv) 20 ml ID .ONCE PRN PRN Reason: PERINEAL REPAIR Stop: 04/08/23 18:55 Methylergonovine Maleate (Methylergonovine 0.2 Mg/Ml Vial) 0.2 mg IM .ONCE PRN PRN Reason: Hemorrhage Misoprostol (Misoprostol 200 Mcg Tablet) 600 mcg BC .ONCE PRN PRN Reason: Hemorrhage Misoprostol (Misoprostol 200 Mcg Tablet) 800 mcg CO .ONCE PRN PRN Reason: Hemorrhage Nifedipine (Nifedipine 10 Mg Capsule) 10 - 20 mg PO Q20M PRN; Protocol PRN Reason: SBP> or= 160 OR DBP> or= 110 Oxytocin (Oxytocin 10 Unit/Ml Vial) 10 unit IM .ONCE PRN PRN Reason: Step One if no IV access. Sodium Chloride (Sodium Chloride Flush 0.9% 10 Ml Syringe) 10 ml IVP PRN PRN PRN Reason: NEEDED PER PROVIDER ORDERS Sodium Chloride (Sodium Chloride Flush 0.9% 10 Ml Syringe) 10 ml IVP Q8H DOMINICK Terbutaline Sulfate (Terbutaline 1 Mg/Ml Vial) 0.25 mg SUBQ .ONCE PRN PRN Reason: Tachystole Aspirin [[place] Aspirin EC] 81 mg PO DAILY 04/02/23 No122/Iron/Folic Acid [ Multi Tablet] 1 tab PO DAILY 04/02/23 Allergies/Adverse Reactions: Allergies Allergy/AdvReac Type Severity Reaction Status Date / Time No Known Drug Allergies Allergy Verified 04/02/23 15:18 Anes History & Medical History - Anesthetic History Anesthesia Complications: reports: No previous complications Family history of Anesthesia Complications: Denies Family history of Malignant Hyperthermia: Denies - Medical History Cardiovascular: reports: None Pulmonary: reports: None Gastrointestinal: reports: None Urinary: reports: None Neuro: reports: None Musculoskeletal: reports: None Smoking Status: Never smoker Psychosocial: reports: No issues indicated Exam General: Alert Dental: WNL Mouth Openin Fingerbreadth Neck Mobility: Normal Mallampati classification: III Thyromental Distance: 4-6 cm Plan Anesthesia Type: Epidural Consent for Procedure(s) Verified and Reviewed: Yes Code Status: Attempt Resuscitation ASA classification: 2-Mild systemic disease Is this case an emergency?: No
[2023-04-06] MEDS: ROPIVACAINE 0.2% 200 MG/100 ML BAG EP PRN (03:38)
--- NOTE | 2023-04-06 04:14 | PROVIDER PROGRESS NOTE ---
Labor Progress Note - Uterine Monitoring Uterine Monitoring Mode: positive: IUPC Contraction Intensity: positive: Mild to moderate Uterine Resting Tone: positive: Soft - Monitoring Monitor Mode: positive: External ultrasound, Spiral electrode (placed for AROM and removed.) Accelerations: positive: Present, 15x15 Decelerations: positive: Late, Variable Strip Review: positive: Category II (mostly good) - Vaginal Exam Dilation (in cm): 7 Effacement (%): 100 Station: -2 (still higher than I would expect. but well applied. came down some with AROM.) - Labor Progress Note Labor Progress Note/Additional Text: have not been able to run pitocin for much of night with on and off late decels. still making slow progress. just higher than I would expect. will see how she does now after after AROM. recheck in 2 hours and if no progress may need c section. we will see. I told her this and she was very sad and started crying. Gonzalo is very supportive.
[2023-04-06] MEDS ORDERED: LIDOCAINE 2%-EPI 1:100000 20 ML MDV ONE (07:17)
--- NOTE | 2023-04-06 07:18 | PROVIDER PROGRESS NOTE ---
Labor Progress Note - Uterine Monitoring Uterine Monitoring Mode: positive: External toco Contraction Intensity: positive: Mild to moderate - Monitoring Monitor Mode: positive: External ultrasound Heart Rate Variability: positive: Moderate (6-25 bmp) Accelerations: positive: Present, 15x15 Decelerations: positive: Late, Variable Strip Review: positive: Category II - Vaginal Exam Dilation (in cm): 8 Effacement (%): 100 Station: 1 (baby is acynclitic with significant caput. hard to tell exact position because she was so uncomfortable.) - Labor Progress Note Labor Progress Note/Additional Text: pateint is miserable, shaky, pain in right hip and into her back. SKIN PASS OPERATOR Kayleigh Antoinette here to evaluate and feels epidural has come out. she has offered to replace and is in progress of this now. will see if that helps her feel better. she is making progress. baby overall is reassuring. will continue with laboring. I did tell her if she has enough she can always request a c section at any time. I'm still not sure baby will fit, but she does keep making progress. sign out given to Dr. Hernandez who will be coming on at 8.
[2023-04-06] MEDS ORDERED: SODIUM CHLORIDE 0.9% 10 ML VIAL IVP ONE (07:26)
[2023-04-06] MEDS ORDERED: fentaNYL 100 MCG/2 ML VIAL ONE (07:26)
[2023-04-06] MEDS ORDERED: ONDANSETRON 4 MG/2 ML VIAL IVP PRN (13:12)
[2023-04-06] MEDS ORDERED: CALCIUM CARBONATE CHEW 500 MG TABLET PO PRN (13:12)
[2023-04-06] MEDS ORDERED: SIMETHICONE CHEW 80 MG TABLET PO PRN (13:12)
--- NOTE | 2023-04-06 13:12 | DELIVERY NOTE ---
Delivery Note - Labor Labor: positive: Spontaneous - Delivery Method Delivery Method: positive: Spontaneous vaginal delivery - Presentation Presentation: positive: Vertex - Nuchal Cord Nuchal Cord: positive: Present, Reduced - Anesthetic Anesthetic Type: - Amniotic Fluid Description Amniotic Fluid Description: positive: Clear - Laceration Laceration: positive: 2nd degree - Suture Suture Type: positive: Vicryl Suture Size: positive: 3-0 - : positive: Placed in direct skin contact with mother, [place] used sex: positive: Male - Cord Cord: positive: 3 vessels - Placenta Placenta: positive: Intact - Estimated Blood Loss Estimated Blood Loss (in cc): 250 - Post Delivery Events Post Delivery Events: positive: No post delivery events - Delivery Comments (Free Text/Narrative) Delivery Comments (Free Text/Narrative): Preoperative Diagnoses 40 weeks gestation Term labor Augmentation of labor Postoperative Diagnoses Same Delivery of live hoang Status post spontaneous vaginal delivery Delivery Summary: Patient was placed in the dorsal lithotomy position. Upon maternal pushing the head was delivered atraumatically followed by the anterior shoulder, posterior shoulder, then the remainder of the infant's body. A male infant was delivered with APGARS of 9 at 1 minute and 9 at 5 minutes. The was placed on its mother's chest . After the cord finished pulsating, the umbilical cord was clamped times two and cut. The placenta delivered intact with three vessel cord. Placenta was not sent to pathology. Thirty units of Pitocin were added to the IV fluid and allowed to run freely. Uterine massage was performed until uterus was deemed firm. Upon inspection of the perineum, second-degree midline laceration was noted and repaired with a running suture of 3-0 Vicryl. Upon re-inspection the patient was hemostatic. Uterus again massaged and found to be firm. Needle and sponge counts were correct. Patient was stable and allowed to recover in L&D room. was stable and remained in room with mother. weight: 3715 g
--- NOTE | 2023-04-06 13:32 | ANESTHESIA PROCEDURE NOTE ---
Anesthesia Epidural Template - Patient Report Patient Reports: positive: Inadequate control (Called to evaluate patient for inadequate labor analgesia. She had no discernable level on exam and was 10/10 pain. Epidural catheter at 8cm at the skin. Suspect catheter has moved and no longer in the epidural space. Offered to replace and patient agrees.) - Plan Plan: positive: Other (recommend replacement) - Other Comments Other Comments: Patient was place in a sitting position and previously placed epidural removed with tip intact. Her back was prepped with chlorohexadine, sterile drapes applied and L4-L5 interspace was localized with 3ml of 1% lidocaine. A 17G tuohy needle was inserted with MOE at 7cm. Epidural catheter advanced with ease and placed at 12cm at the skin. There was no paresthesia, csf or heme. Test dose of 5ml 2% lido with epi was injected in divided doses and was negative for tachycardia or intrathecal. Epidural was dosed with 10ml of 0.2% ropivicaine and 100mcg fentanyl in 8ml PF NS. Patient reported she was comfortable and was able to rest during contractions. Continued previous infusion rate.
--- NOTE | 2023-04-06 13:38 | PHARMACY PROGRESS NOTE ---
- Best Possible Medication History Admit Date and Time: 04/05/23 1351 Patient Interview: Pt unable to participate (REFUSED PER RN) As the person ultimately responsible for medication therapy, providers are able to order a medication from an existing home medication list in [facility] via the "Reconcile Routine" prior to Confirmation of that medication by product support consultant. Such practice is discouraged except when the physician, in their clinical judgment, deems that a medical need exists for a medication without regard to previous use.
[2023-04-06] MEDS: IBUPROFEN 600 MG TABLET PO SCH (13:56)
[2023-04-06] MEDS: ACETAMINOPHEN 500 MG TABLET PO SCH (13:56)
[2023-04-06] MEDS ORDERED: LACTATED RINGERS 1,000 ML IV SCH (14:00)
[2023-04-06 20:33] VITALS: O2SAT 98
[2023-04-07] MEDS: DOCUSATE SODIUM 100 MG CAPSULE PO PRN (08:30)
--- NOTE | 2023-04-07 10:21 | PROVIDER PROGRESS NOTE ---
Objective - Vital Signs/Intake & Output Intake & Output: Intake & Output 04/04/23 04/05/23 04/06/23 04/07/23 23:59 23:59 23:59 23:59 Intake Total 250.860 0090.517 500 Output Total 1700 Balance 700.517 15.517 500 - Lab Results Fish Bones: 04/05/23 19:35 04/05/23 19:35
[2023-04-07 10:52] VITALS: BP 123/81
--- NOTE | 2023-04-07 13:46 | DISCHARGE SUMMARY ---
Discharge Summary Admit Date: 04/05/23 Discharge Date: 04/07/23 Discharging Provider: Dharmesh Hernandez MD Code Status: Attempt Resuscitation Condition at Discharge: Good Discharge Disposition: 01 Home, Self Care - DIAGNOSES Admission Diagnoses: Term labor 39 weeks gestation Discharge Diagnoses with Status of Each Condition: Deliver live hoang Status post spontaneous vaginal delivery Term labor: Resolved - HPI History of Present Illness: Subjective Patient reports she is doing well. Lochia appropriate. Denies heavy bleeding. Ambulating. Pelvic and abdominal pain well-controlled. Tolerating oral intake. Diet: Regular. Voiding without difficulty. Passing flatus. Denies BM. Patient is bonding with baby [in room] Breast feeding going well. Denies feeling lightheaded, dizzy or excessively fatigued. Objective General: Alert, oriented, no apparent distress. Cardiovascular: Regular rate. Regular rhythm. Lungs: No increased work of breathing. Abdomen: Uterus firm. Below umbilicus. No guarding or rebound. Extremities: No pain on palpation. No cords palpated. Distal pulses intact. - HOSPITAL COURSE Hospital Course: Patient was admitted in term labor. Oxytocin was used for augmentation due to infrequent contractions. She received an epidural for pain control. Spontaneous vaginal delivery was uncomplicated with a small second-degree lac eration. course was unremarkable and she desired to return home with her on day 1. - ALLERGIES Allergies/Adverse Reactions: Allergies Allergy/AdvReac Type Severity Reaction Status Date / Time No Known Drug Allergies Allergy Verified 04/02/23 15:18 - MEDICATIONS Home Medications: Ambulatory Orders Medication Instructions Recorded Confirmed Aspirin [[place] Aspirin EC] 81 mg PO DAILY 04/02/23 04/03/23 No122/Iron/Folic Acid 1 tab PO DAILY 04/02/23 04/03/23 [ Multi Tablet] Ibuprofen [Motrin] 600 mg PO Q6H PRN #30 tab 04/07/23 - LABS Result Diagrams: 04/05/23 19:35 04/05/23 19:35 - FOLLOW UP Follow Up: With [facility] women's care in 1 to 2 weeks - TIME SPENT Time Spent in Discharge (Minutes): 20
--- NOTE | 2023-04-07 13:46 | Discharge Plan ---
Discharge Plan Problem Reviewed?: Yes Disposition: Home, Self Care Condition: Good Prescriptions: Ibuprofen [Motrin] 600 mg PO Q6H PRN #30 tab PRN Reason: Pain Instruction Topics: Depression No Smoking: If you smoke, Please STOP! Call for help. Follow-up with: Leti Jin ARNP [Primary Care Provider] -
--- NOTE | 2023-04-07 14:48 | Labor Flowsheet ---
Labor Flowsheet Datetime Report Generated by CPN: 04/07/2023 14:47 Datetime: 04/07/2023 10:35 VITAL SIGNS NBP Sys/Sylwia/Mean (mmHg): 123 : 81 : 89 Pulse: 87 Datetime: 04/06/2023 13:36 Patient Care Comments: Patient ambulated to with steady gait, accompanied by this RN. Voided 500 mls clear yellow urine. Pericare performed, pads/underwear applied and new gown given. Epidural cath eter removed with blue tip intact. Bed linens changed. Patient ambulated back to bed. COMMUNICATION Communication: RN at Bedside Datetime: 04/06/2023 13:30 Stage of : Recovery Datetime: 04/06/2023 12:35 SpO2 (%): 98 Datetime: 04/06/2023 12:22 Membranes Ruptured Date/Time: 04/06/2023 03:58 Datetime: 04/06/2023 12:00 PAIN Pain Scale: 2 Pain Presence: Constant Pain Type: Ache Pain Location: Abdomen Pain Goal: 4 Pain Assessment Comments: Patient states pain is at a tolerable level. Datetime: 04/06/2023 11:55 LaborFlag: Labor Datetime: 04/06/2023 11:30 Pattern: Normal: <= 5 Contractions in 10 Minutes FHR Baseline Rate : 155 Variability: Moderate 6-25 bpm Accelerations: None Decelerations: Late Datetime: 04/06/2023 11:10 Frequency (min): 2-3 Datetime: 04/06/2023 10:52 STAGE 2 Pushing: Coached on Pushing; Urge to Push Pushing Position: Pushing with Contractions; Pushing Lithotomy Pushing Progress: Descent with Pushing Datetime: 04/06/2023 10:44 VAGINAL EXAM Dilatation (cm): 10.0 Effacement (%): 100 Station: 2 Exam by: Ciera Sal RN Vaginal Bleeding: Normal Show Vaginal Exam Comments: Patient consent obtained prior to SVE. Datetime: 04/06/2023 10:30 UTERINE ACTIVITY Monitor Mode: External Quality: Strong Duration (sec): 50-100 Resting Tone (Palpate): Relaxed ASSESSMENT A Monitor Mode: Telemetry Category: Category I Datetime: 04/06/2023 10:03 Cervix, Consistency: Soft Cervix, Position: Anterior Datetime: 04/06/2023 09:57 Patient Position/Activity: Left Lateral Datetime: 04/06/2023 09:30 Temperature (C): 37.4 Datetime: 04/06/2023 07:42 Respirations: 16 Datetime: 04/06/2023 07:34 I/O Interventions: Ice Chips Given; Clear Liquids Given Datetime: 04/06/2023 07:33 Communication Comments: Report received from Matt Rose, RN. Patient care assumed. Datetime: 04/06/2023 07:15 Epidural Procedure: Cath Placed Datetime: 04/06/2023 07:04 PROCEDURE TIME OUT Procedure Verify: Correct Patient Identity; Correct Side and Site are Marked; Accurate Procedure Co nsent Form; Agreement on Procedure to be Done; Correct Patient Position ANESTHESIA Anesthesia Plans: Epidural Epidural Positioning: Sitting Datetime: 04/06/2023 07:01 Anesthesia Comments: at bedside for discussion in regards to epidural. Pt agrees to new epidural p lacement. Datetime: 04/06/2023 05:35 Monitor Interventions for FHR: Ultrasound Adjusted Datetime: 04/06/2023 05:07 Contraction Comments: IUPC removed per patient request. No issues. Amniotic Fluid Color: Clear Amniotic Fluid Amount: Scant Amniotic Fluid Odor: Normal Datetime: 04/06/2023 05:00 Anesthesia Level Check: T9 Datetime: 04/06/2023 04:01 Temperature Route: Oral Datetime: 04/06/2023 04:00 Comments: FSE applied, provider removed due to no tracing. EFM external replaced. Datetime: 04/06/2023 03:58 Monitor Interventions for UA: [place] Adjusted Membrane Status: Ruptured Membranes Rupture Method: Artificial Membrane Comments: IUPC placed. Monitoring system trouble shooting. External [place] replaced. Datetime: 04/06/2023 03:50 MEDICATIONS Pitocin (milliunits): Started @ 1 Datetime: 04/06/2023 01:01 Provider Notified (Name): Pelaez Notification Reason: Status Update; Status; Labor Status Datetime: 04/06/2023 00:30 FHR Baseline Changes: No Baseline Change Datetime: 04/05/2023 22:15 Pitocin Checklist: At Least 1 Acceleration of 15 bpm x 15 Seconds in 30 Minutes or Adequate Variabi lity; No More than 1 Late Deceleration Occurred in Past 30 Minutes; No More than 2 Variable Decelerat ions > 60 Seconds in Duration and decreasing >60 bpm in 30 minutes; No More than 5 Uterine Contractio ns in 10 Minutes for any 20 Minute Interval; Uterus Palpates Soft between Contractions Datetime: 04/05/2023 21:32 Epidural Procedure Other: Pump Started Datetime: 04/05/2023 20:04 Pain Relief Measures: Pain Medication Given; Epidural Given; Comfort Measures Pain Coping: Breathing Through Contractions; Requesting Pain Medication or Epidural Datetime: 04/04/2023 14:51 Strip Reviewed by: Dr. Pelaez Datetime: 04/03/2023 13:09 Cervical Ripening Agents: Cytotec @ 25 Datetime: 04/02/2023 18:30 Oxygen Method: Room Air Datetime: 04/02/2023 14:49 PATIENT CARE IV/Blood Work: IV Started Datetime: 03/04/2023 11:32 TEACHING Teaching Comments: Discharge teacing performed. All patient questions answered at this time.
== END 2023-04-07 14:40 | disposition home or self-care (01) | DRG 807 ==
LOC: WFO 17:55 → FBP 17:57 → WFO 19:01
PROVIDERS: ADMIT Obstetrics & Gynecology; ATTEND Obstetrics & Gynecology
PROC: 10E0XZZ Delivery of Products of Conception, External Approach (ICD-10-PCS; principal; 2023-04-06)
PROC: 0KQM0ZZ Repair Perineum Muscle, Open Approach (ICD-10-PCS; 2023-04-06)
PROC: 10907ZC Drainage of Amniotic Fluid, Therapeutic from Products of Conception, Via Natural or Artificial Opening (ICD-10-PCS; 2023-04-06)
PROC: 4A1HXCZ Monitoring of Products of Conception, Cardiac Rate, External Approach (ICD-10-PCS; 2023-04-06)
PROC: 10H07YZ Insertion of Other Device into Products of Conception, Via Natural or Artificial Opening (ICD-10-PCS; 2023-04-06)
DX: O70.1 Second degree perineal laceration during delivery (principal); Z37.0 Single live birth; Z3A.40 40 weeks gestation of pregnancy; O99.214 Obesity complicating childbirth; O76 Abnormality in fetal heart rate and rhythm complicating labor and delivery; O75.89 Other specified complications of labor and delivery
CPT/HCPCS: 59409; 80053; 82570; 84156; 84550; 85025; 86850; 86900; 86901; 99215; A9270; J7120; 36415; 84443

== ENCOUNTER 2023-04-11 13:11 | Outpatient (CLI) | payer OTHER ==
[2023-04-11 19:30] LABS: BASOPHILS % (AUTO) 0.4 %; EOSINOPHILS # (AUTO) 0.2 10^3/uL (0.0-0.7); EOSINOPHILS % (AUTO) 2.4 %; HCT - HEMATOCRIT 32.8 % (37.0-47.0); HGB - HEMOGLOBIN 10.3 g/dL (12.0-16.0); LYMPHOCYTES # (AUTO) 2.3 10^3/uL (1.5-3.5); LYMPHOCYTES % (AUTO) 24.5 %; MEAN CORPUSCULAR HEMOGLOBIN 29.6 pg (27.0-31.0); MEAN CORPUSCULAR HGB CONC 31.4 g/dL (32.0-36.0); MEAN CORPUSCULAR VOLUME 94.3 fL (81.0-99.0); MEAN PLATELET VOLUME 9.9 fL (7.9-10.8); MONOCYTES # (AUTO) 0.5 10^3/uL (0.0-1.0); MONOCYTES % (AUTO) 5.6 %; NEUTROPHILS # (AUTO) 6.3 10^3/uL (1.5-6.6); NEUTROPHILS % (AUTO) 66.6 %; PLT - PLATELET COUNT 369 10^3/uL (130-450); RED BLOOD COUNT 3.48 10^6/uL (4.20-5.40); RED CELL DISTRIBUTION WIDTH 12.6 % (12.0-15.0); WHITE BLOOD COUNT 9.4 x10^3/uL (4.8-10.8)
[2023-04-11 20:05] LABS: ALBUMIN 3.4 g/dL (3.2-5.5); ALBUMIN/GLOBULIN RATIO 1.3 (1.0-2.2); BILIRUBIN,TOTAL 0.3 mg/dL (0.2-1.0); CALCIUM 9.4 mg/dL (8.5-10.3); CREATININE 0.6 mg/dL (0.6-1.3); POTASSIUM 4.2 mmol/L (3.5-4.5); TOTAL PROTEIN 6.1 g/dL (6.4-8.9)
[2023-04-11 20:07] LABS: CREATININE,URINE 235.4 mg/dL; PROTEIN/CREATININE RATIO,URINE 0.2 (<=0.2)
== END 2023-04-11 13:12 | disposition home or self-care (01) ==
LOC: LAB.N 13:11
PROVIDERS: ATTEND Nurse Practitioner
DX: R60.9 Edema, unspecified (principal)
CPT/HCPCS: 36415; 80053; 82570; 84156; 85025

== ENCOUNTER 2023-05-18 08:00 | Outpatient (CLI) | payer OTHER ==
[2023-05-18 23:27] LABS: CHLAMYDIA TRACHOMATIS DNA NEGATIVE (NEGATIVE); NEISSERIA GONORRHOEAE DNA NEGATIVE (NEGATIVE)
[2023-05-19 00:24] LABS: BACTERIAL VAGINOSIS DNA NEGATIVE (NEGATIVE); CANDIDA GLABRATA DNA NEGATIVE (NEGATIVE); CANDIDA GROUP DNA POSITIVE (NEGATIVE); CANDIDA KRUSEI DNA NEGATIVE (NEGATIVE); TRICHOMONAS VAGINALIS DNA NEGATIVE (NEGATIVE)
== END 2023-05-18 23:59 | disposition home or self-care (01) ==
LOC: LAB.WC 08:00
PROVIDERS: ATTEND Nurse Practitioner
DX: N89.8 Other specified noninflammatory disorders of vagina (principal); Z11.3 Encounter for screening for infections with a predominantly sexual mode of transmission
CPT/HCPCS: 81514; 87491; 87591; 87661